=== PATIENT | female | born 1990 | race Caucasian/White ===

== ENCOUNTER 2016-03-18 05:38 | Inpatient (IN) | payer OTHER ==
[2016-03-18] VITALS (16 sets, daily range): BP systolic 103–142; BP diastolic 55–95
[~2016-03-18] VITALS: Ht 160 cm; Wt 106.6 kg
[~2016-03-18 05:38] MED LIST: ADDERALL XR 2020 MG PO; ADDERALL XR 5 MG5 MG PO; CRYSELLE1 EACH; FIORICET 50-301 EACH PO; LEXAPRO20 MG PO; LITHATE5 MG PO; LITHIUM CARBON300 MG PO; MAALOX MAXIMUM355 ML PO; MEDROL DOSEPAK4 MG PO; OCELLA TABLET1 EACH PO; OXYCODONE HCL5 MG PO; PRILOSEC20 MG PO; ZITHROMAX600 MG PO; ZOFRAN ODT8 MG PO; ZOFRAN4 MG PO
[2016-03-18] MEDS ORDERED: PRENATAL TABLE1 EAC3 PO (06:15)
[2016-03-18 08:36] LABS: BASOPHIL COUNT 0.1 K/uL (0-0.1); EOSINOPHIL (%) 0.8 % (0-5); EOSINOPHIL COUNT 0.2 K/uL (0-0.3); HEMATOCRIT 38.6 % (36.0-46.0); IMMATURE GRANULOCYTE (%) 0.9 % (0.0-0.7); IMMATURE GRANULOCYTE COUNT 0.2 K/uL; LYMPHOCYTE COUNT 3.1 K/uL (1.0-2.8); MCH 29.2 PG (29.0-34.0); MCHC 33.2 G/DL (30.0-36.0); MCV 88.1 FL (83-99); MEAN PLAT.VOLUME 11.3 uM^3 (9.5-12.4); MONOCYTE (%) 6.1 % (3-12); MONOCYTE COUNT 1.1 K/uL (0-0.8); NEUTROPHIL (%) 74.9 % (45-76); NEUTROPHIL COUNT 13.6 K/uL (1.8-6.4); PLATELET COUNT 245 K/uL (156-360); RBC DIS.WIDTH-CV 14.5 % (11.8-14.6); RBC DIS.WIDTH-SD 46.6 % (39-53); RED BLOOD COUNT 4.38 M/uL (3.80-5.20); WHITE BLOOD COUNT 18.2 K/uL (4.1-10.2)
[2016-03-19 07:32] LABS: EOSINOPHIL (%) 0.5 % (0-5); EOSINOPHIL COUNT 0.1 K/uL (0-0.3); HEMATOCRIT 32.5 % (36.0-46.0); IMMATURE GRANULOCYTE (%) 0.6 % (0.0-0.7); IMMATURE GRANULOCYTE COUNT 0.1 K/uL; LYMPHOCYTE COUNT 3.3 K/uL (1.0-2.8); MCH 28.6 PG (29.0-34.0); MCHC 32.6 G/DL (30.0-36.0); MCV 87.8 FL (83-99); MONOCYTE (%) 6.9 % (3-12); MONOCYTE COUNT 1.5 K/uL (0-0.8); NEUTROPHIL (%) 76.8 % (45-76); NEUTROPHIL COUNT 16.6 K/uL (1.8-6.4); PLATELET COUNT 184 K/uL (156-360); RBC DIS.WIDTH-CV 14.8 % (11.8-14.6); RBC DIS.WIDTH-SD 46.9 % (39-53); WHITE BLOOD COUNT 21.7 K/uL (4.1-10.2)
[2016-03-19 07:53] VITALS: BP 104/57
[2016-03-19 14:58] VITALS: BP 121/67
[2016-03-19 23:26] VITALS: BP 116/69
[2016-03-20 07:45] VITALS: BP 130/78
== END 2016-03-20 13:35 | disposition home or self-care (01) | DRG 775 ==
LOC: LDRP-OP 05:38 → 2WEST 05:39 → LDRP-OP 04-15 15:30
PROVIDERS: Advanced Practice Midwife
DX: O71.82 Other specified trauma to perineum and vulva (principal); O99.214 Obesity complicating childbirth; O99.344 Other mental disorders complicating childbirth; F32.9 Major depressive disorder, single episode, unspecified; E66.01 Morbid (severe) obesity due to excess calories; Z3A.40 40 weeks gestation of pregnancy; Z37.0 Single live birth; Z68.33 Body mass index [BMI] 33.0-33.9, adult
CPT/HCPCS: 85025; C1755; J0595; J7120; Q0169

== ENCOUNTER 2017-06-07 21:15 | Emergency (ER) | payer OTHER ==
[~2017-06-07] VITALS: Ht 160 cm; Wt 88.6 kg
[~2017-06-07 21:15] MED LIST changes: +PRENATAL TABLE1 EAC3 PO
[2017-06-07 22:22] LABS: HEMATOCRIT 41.3 % (36.0-46.0); HEMOGLOBIN 14.1 G/DL (11.9-15.5); MCH 30.1 PG (29.0-34.0); MCHC 34.1 G/DL (30.0-36.0); MCV 88.2 FL (83-99); PLATELET COUNT 291 K/uL (156-360); RBC DIS.WIDTH-CV 12.7 % (11.8-14.6); RBC DIS.WIDTH-SD 40.9 % (39-53); RED BLOOD COUNT 4.68 M/uL (3.80-5.20)
[2017-06-07 23:11] LABS: ALBUMIN 4.4 G/DL (3.2-4.8); ALKALINE PHOSPHATASE 71 IU/L (3-129); ALT (GPT) 6 IU/L (3-49); AST (GOT) 14 IU/L (2-34); CHLORIDE 103 MEQ/L (99-109); CREATININE 0.8 MG/DL (0.6-1.3); GFR ESTIMATE (CALCULATED) > 59 mL/min/; GLUCOSE 96 mg/dL (70-99); LIPASE 29 U/L (1.0-51.0); POTASSIUM 4.2 MEQ/L (3.7-5.4); SODIUM 137 MEQ/L (136-147); TOTAL BILIRUBIN 0.4 MG/DL (0.0-1.0); TOTAL PROTEIN 7.4 G/DL (6.4-8.3); UREA NITROGEN (BUN) 15 mg/dL (9-23)
[2017-06-07 23:12] LABS: APPEARANCE CLOUDY ((CLEAR)); BILIRUBIN NEGATIVE; BLOOD SMALL; COLOR YELLOW ((YELLOW)); GLUCOSE (STRIP) NEGATIVE; KETONES NEGATIVE; LEUKOCYTES MODERATE; NITRITE NEGATIVE; PROTEIN (STRIP) NEGATIVE; SPECIFIC GRAVITY 1.013 (1.000-1.030); UROBILINOGEN 0.2 MG/DL (0.2-1.0)
[2017-06-07 23:20] LABS: BACTERIA NONE SEEN /HPF; EPITHELIAL CELLS 3+ /HPF; MUCUS TRACE /LPF; RED BLOOD CELLS 0-5 /HPF (0-5); UCUL ADDED? YES
[2017-06-07 23:52] LABS: QUANTITATIVE HCG < 4.0 MIU/ML
[2017-06-08] MEDS ORDERED: ZOFRAN ODT4 MG PO (00:55)
[2017-06-08] MEDS ORDERED: NORCO 5/3251 TABLET PO (00:55)
[2017-06-08] MEDS ORDERED: MACROBID100 MG PO (00:55)
[2017-06-08 02:03] VITALS: BP 116/71
== END 2017-06-08 02:04 | disposition home or self-care (01) ==
LOC: EME 21:15
DX: N39.0 Urinary tract infection, site not specified (principal); F32.9 Major depressive disorder, single episode, unspecified; Z88.0 Allergy status to penicillin; Z88.1 Allergy status to other antibiotic agents; Z88.8 Allergy status to other drugs, medicaments and biological substances
CPT/HCPCS: 74176; 80053; 81003; 83690; 84702; 85027; 87086; 99281; 99285; J2405; J3010; J7030